=== PATIENT | male | born 1955 | race American Indian/Alaskan Native ===

== ENCOUNTER 2019-07-22 10:50 | Day surgery (SDC) | payer OTHER ==
[~2019-07-22 10:50] MED LIST: APRACLONIDINE 1% OPHTH SOLN DROPERETTE ONE; APRACLONIDINE 1% OPHTH SOLN DROPERETTE OU ONE; PHENYLEPHRINE 10% OPHTH SOLN 5 ML ONE; TROPICAMIDE 1% OPHTH SOLN 3 ML ONE
[2019-07-22] MEDS ORDERED: APRACLONIDINE 1% OPHTH SOLN DROPERETTE OU ONE ×2 (11:25→12:27)
[2019-07-22] MEDS ORDERED: TROPICAMIDE 1% OPHTH SOLN 3 ML OU ONE (11:25)
[2019-07-22] MEDS ORDERED: PHENYLEPHRINE 10% OPHTH SOLN 5 ML OU ONE (11:25)
[2019-07-22 11:30] VITALS: BP 134/85
== END 2019-07-22 12:31 | disposition home or self-care (01) ==
LOC: OR 10:50
PROVIDERS: ATTEND Ophthalmology
DX: H26.493 Other secondary cataract, bilateral (principal); I10 Essential (primary) hypertension; G47.30 Sleep apnea, unspecified; M19.90 Unspecified osteoarthritis, unspecified site; Z87.891 Personal history of nicotine dependence; Z79.899 Other long term (current) drug therapy; Z79.82 Long term (current) use of aspirin; Z98.41 Cataract extraction status, right eye; Z98.42 Cataract extraction status, left eye; Z72.89 Other problems related to lifestyle; Z98.890 Other specified postprocedural states; Z90.49 Acquired absence of other specified parts of digestive tract